=== PATIENT | female | born 1960 | race Caucasian/White ===

== ENCOUNTER 2020-02-10 09:56 | Outpatient (CLI) | payer BC, MEDICARE, SELFPAY ==
[2020-02-10 10:59] LABS: Anion Gap 13.6 mmol/L (7-16); Blood Urea Nitrogen 19 mg/dL (7-18); Calcium 9.5 mg/dL (8.5-10.1); Carbon Dioxide 28 mmol/L (21-32); Chloride 100 mmol/L (98-108); Estimated Glomerular Filt Rate > 60; Glucose 91 mg/dL (70-99); Osmolality Calculated 288 mOsm/kg (285-295); Potassium 3.6 mmol/L (3.5-5.1); Sodium 138 mmol/L (136-145)
== END 2020-02-10 09:57 | disposition home or self-care (01) ==
LOC: CHSLAB 10:01
DX: N28.9 Disorder of kidney and ureter, unspecified (principal)
CPT/HCPCS: 36415; 80048

== ENCOUNTER 2020-10-16 12:42 | Outpatient (RCR) | payer MEDICARE, BC, SELFPAY ==
--- NOTE | 2020-10-16 13:40 | PTOPEVAL ---
Thank you for referring Chitra Turcios to [facility].? The patient is scheduled to be seen for therapy? ____x/week for ___ weeks. Please review, sign, date and return this plan of care ANDRES. I agree with and certify that the following plan of care is medically necessary. Referring Physician Date Admitting Provider: Attending Provider: PHYSICIAN NOT ON STAFF Referring Provider: *PT Outpatient Evaluation Start: 10/16/20 13:02 Freq: Status: Active Protocol: Document 10/16/20 13:00 WILL (Rec: 10/16/20 13:38 [id number]) Therapy Assessment Status Assessment Status Assessment Status Evaluation Evaluation Information Problem Diagnosis s/p R TKA revision Onset 10/04/20 Additional Evaluation Detail LEFS = 85% functionally declined Subjective Information patient reports this is her Query Text:As Reported By Patient/ surgery on the R LE. she Family reports this most recent surgery is a revision of her R TKa. she reports she has been struggling with tightness and difficulty sleeping mostly since surgery. she reports since surgery, she has had no home health, but has been doing exercises on her own at home. Prior Level of Function Comments Additional Prior Level of Function patient reports prior to Comments surgery she was walking without any AD. she reports she was having increased pain in the R knee. she reports her pain was worse with activity. Pain Assessment Timing of Pain Assessment Timing of Pain Assessment Assessment Pain Scale Pain Scale Used Numeric (1 - 10) Self Report Pain Assessment Right Knee(s) Reported Pain Level 7 Lowest Pain Intensity 5 Greatest Pain Intensity 10 Pain Score Pain Score 7: Self Report Additional Pain Score Comments patient reports she has fallen in the hospital after surgery due to pain. Interventions Used Interventions Used By Clinicians Activity or ADL's,Compression Pump,Elevation,Exercise,Ice Lower Extremity Range of Motion Knee Range of Motion Right Knee Flexion Range of Motion - Active 90 Knee Extension Range of Motion - Active -15 Query Text: Left Knee Flexion Range of Motion - Active 125 Knee Extension Range of Motion - Active 0 Query Text:
--- NOTE | 2020-11-13 14:04 | PCPTNOTE ---
patient called and cancelled appt today. JOHN
--- NOTE | 2020-12-13 09:19 | PTOPEVAL ---
Thank you for referring Chitra Turcios to [facility][Note 3].? The patient is scheduled to be seen for therapy? ____x/week for ___ weeks. Please review, sign, date and return this plan of care ANDRES. I agree with and certify that the following plan of care is medically necessary. Referring Physician Date Admitting Provider: Attending Provider: PHYSICIAN NOT ON STAFF Referring Provider: *PT Outpatient Evaluation Start: 10/16/20 13:02 Freq: Status: Discharge Protocol: Document 12/11/20 13:08 WILL (Rec: 12/11/20 13:44 Kristen [email or web address]) Therapy Assessment Status Assessment Status Assessment Status Discharge Evaluation Information Problem Diagnosis s/p R TKA revision Onset 10/04/20 Additional Evaluation Detail LEFS = 35% functionally declined Subjective Information patient reports she feels Query Text:As Reported By Patient/ good this date. she reports Family she is a bit sore from being up and down to the floor yesterday. she reports she has full bend and extension and doesnt see an need to continue therapy at this time. she reports her R knee does continue to have swelling in the knee. she reports she has had 13 total surgeries on the R knee. Pain Assessment Timing of Pain Assessment Timing of Pain Assessment Assessment Pain Scale Pain Scale Used Numeric (1 - 10) Self Report Pain Assessment Right Knee(s) Reported Pain Level 7 Lowest Pain Intensity 5 Greatest Pain Intensity 7 Pain Score Pain Score 7: Self Report Interventions Used Interventions Used By Clinicians Activity or ADL's,Compression Pump,Elevation,Exercise,Ice Lower Extremity Range of Motion Knee Range of Motion Right Knee Flexion Range of Motion - Active 120 Knee Extension Range of Motion - Active 0 Query Text: Lower Extremity Muscle Strength Testing Hip Strength Right Hip Flexion Strength 4+ Good + Knee Strength Right Knee Flexion Strength 5 Normal Knee Extension Strength 4+ Good + Gait Assessment Gait Assessment Additional Ambulation Comments patient ambulates without any AD. she ambulates with reciprocal gait mechanics and equal bialteral heel contact patient ambulates up and down steps with reciprocal gait
== END 2020-12-11 15:00 | disposition home or self-care (01) ==
LOC: CHSPT 12:42
DX: Z96.651 Presence of right artificial knee joint (principal); T84.84XA Pain due to internal orthopedic prosthetic devices, implants and grafts, initial encounter
CPT/HCPCS: 97014; 97016; 97110; 97161; G0283